=== PATIENT | male | born 1975 | race Caucasian/White ===

== ENCOUNTER 2018-04-13 09:29 | Emergency (ER) | payer OTHER ==
[~2018-04-13] VITALS: Ht 182.9 cm; Wt 104.1 kg
[2018-04-13] MEDS ORDERED: MUCINEX FAST-M1 EAC2 PO (13:52)
[2018-04-13] MEDS ORDERED: FLONASE16 G1 BOTH NARES (13:52)
[2018-04-13] MEDS ORDERED: VENTOLIN HFA18 GM IH (13:54)
[2018-04-13 14:13] VITALS: BP 130/84
== END 2018-04-13 14:15 | disposition home or self-care (01) ==
LOC: EME 09:29
DX: B34.9 Viral infection, unspecified (principal); F17.200 Nicotine dependence, unspecified, uncomplicated
CPT/HCPCS: 71046; 87081; 87651 90; 99281; 99284